=== PATIENT | female | born 1970 | race African-American/Black ===

== ENCOUNTER 2020-06-22 14:26 | Emergency (ER) | payer SELFPAY ==
[~2020-06-22] VITALS: Ht 162.6 cm; Wt 80.7 kg
--- NOTE | 2020-06-22 14:45 | NUR ---
ED Nurse Note: Patient walked into ED from home c/o dog bite on the right lower leg that happened around 1330 at work. 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 Dr. Farias made aware. Noted mild swelling but no active bleeding, teeth laine on the right lower leg.
--- NOTE | 2020-06-22 14:52 | Emergency Room Report ---
History of Present Illness General Chief Complaint: Animal Bite Source: Patient Present Illness HPI Disclaimer: Please note that this report is being documented using DRAGON technology. This can lead to erroneous entry secondary to incorrect interpretation by the dictating instrument. HPI: 50-year-old female presents for evaluation after a dog bite to the right calf. Patient states she put on a bowl of food for the dog in her apartment complex multiple dogs ran at her at once and 1 of them bit onto her right calf. Does not know which dog it was over the vaccination status of those dogs. States there was a mild scratch and minor bleeding that was cleaned prior to arrival. Does not recall last tetanus. Notes minor swelling but no further bleeding. Does not appear to have suffered any deep puncture wounds according to patient. No other injuries reported. 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 EOMI. Resp: Normal work of breathing Skin: Intact. No lacerations, ulcerations. There is a scratch over the lateral aspect of the right calf with mild tenderness around an early ecchymosis but no evidence of significant tissue injury. No bleeding. MSK: Normal tone and bulk. Moving all extremities. No obvious deformity. Neuro: Awake and alert. Mentating appropriately Medical Decision Making Diagnostic Impression: Primary Impression: Bite by animal ER Course Is a 50-year-old female presenting for evaluation of abrasion to the right calf from a dog bite. Will update tetanus. Wound was cleaned prior to arrival and does not require any acute wound care at this time. Was put on doxycycline as she is allergic to penicillins. Little concern for deep space infection at this time does not appear that there was significant tissue injury from this dog bite. Worker's Comp. paperwork filled out. Stable for outpatient follow- up. Last Vital Signs Date Time Temp Pulse Resp B/P (MAP) Pulse Ox O2 Delivery O2 Flow Rate FiO2 06/22/20 14:37 99.3 101 16 138/90 (106) 95 Room Air Disposition: HOME, SELF-CARE Condition: Stable Scripts Doxycycline Monohydrate* (DOXYCYCLINE MONOHYDRATE*) 100 Mg Capsule 100 MG ORAL Q12H for 7 Days, #14 CAP 0 Refills Prov: Rush Farias MD 06/22/20 Rush Farias MD Jun 22, 2020 14:52
[2020-06-22] MEDS ORDERED: DOXYCYCLINE MO100 MG ORAL (14:54)
[2020-06-22] MEDS ORDERED: Tetanus/Diptheria/Pertussis IM ONE (15:00)
[2020-06-22 15:07] VITALS: BP 121/72
[2020-06-22 15:13] VITALS: BP 121/72
--- NOTE | 2020-06-22 15:14 | NUR ---
ER DISCHARGE NOTE: Patient is cleared to be discharged per ERMAnamika Farias pt is aox4, on room air, with stable vital signs. pt was given dc and prescription instructions, pt was able to verbalize understanding, pt id band removed without complications. pt is able to ambulate with steady gait. pt took all belongings.
== END 2020-06-22 15:13 | disposition home or self-care (01) ==
LOC: EMR 14:56
DX: S81.851A Open bite, right lower leg, initial encounter (principal); Z23 Encounter for immunization; W54.0XXA Bitten by dog, initial encounter; Y92.9 Unspecified place or not applicable; Z88.0 Allergy status to penicillin
CPT/HCPCS: 90471; 90715; 99282